=== PATIENT | female | born 1955 | race Caucasian/White ===

== ENCOUNTER 2022-02-11 08:28 | Inpatient (IN) ==
[2022-02-05 12:28] LABS: Basophils % 0.7 % (0.0-0.8); Eosinophils # 0.3 10*3/uL (0.0-0.87); Eosinophils % 5.7 % (0.00-10.9); Hematocrit 40.4 VOL% (35.7-47.0); Immature Granulocytes % 0.2 %; Immature Granulocytes Absolute 0.01 #; Lymphocytes # 1.8 10*3/uL (1.4-4.0); Lymphocytes % 30.5 % (21.3-54.2); Mean Corpuscular HGB Conc 32.2 GM/DL (32-36); Mean Corpuscular Volume 91.8 FL (87-102); Mean Platelet Volume 9.8 FL (9.6-12.0); Monocytes # 0.4 10*3/uL (0.11-0.8); Monocytes % 7.5 % (1.7-12.7); Neutrophils % 55.4 % (38.7-73.9); Platelet Count 346 T/CUMM (130-400); Red Cell Distribution Width 13.3 % (9.3-17.3); White Blood Count 5.8 T/CUMM (4-12)
[2022-02-05 12:48] LABS: Calcium 8.8 MG/DL (8.5-10.1); Osmolality,Calculated 273.5 MOS/KG (273-304); Potassium 3.5 MMOL/L (3.5-5.1)
[~2022-02-11 08:28] MED LIST: ALVIMOPAN 12 MG CAPSULE PO ONE; ERTAPENEM 1,000 MG in SODIUM CHLORIDE 0.9% 100 ML IV ONE
[2022-02-11] MEDS: LACTATED RINGERS 1,000 ML IV SCH ×4 (09:05→22:10)
[2022-02-11] MEDS ORDERED: DIAZEPAM 5 MG TABLET PO STA (09:30)
[2022-02-11] MEDS ORDERED: ROCURONIUM 50 MG/5 ML VIAL IV ONE (09:33)
[2022-02-11] MEDS ORDERED: fentaNYL 100 MCG/2 ML VIAL ONE (09:33)
[2022-02-11] MEDS ORDERED: DESFLURANE 1 UNIT/15 MINUTE INH ONE ×2 (09:33→15:18)
[2022-02-11] MEDS ORDERED: ONDANSETRON 4 MG/2 ML VIAL ONE (09:33)
[2022-02-11] MEDS ORDERED: LIDOCAINE 2% 5 ML VIAL ONE (09:33)
[2022-02-11] MEDS ORDERED: propofoL 200 MG/20 ML VIAL IV ONE (09:33)
[2022-02-11] MEDS ORDERED: MIDAZOLAM 2 MG/2 ML VIAL ONE (09:35)
[2022-02-11] MEDS ORDERED: LIDOCAINE 1% 5 ML VIAL ONE (10:23)
[2022-02-11] MEDS ORDERED: BUPIVACAINE MPF 0.25% 30 ML VIAL ONE (10:23)
[2022-02-11] MEDS ORDERED: PHENYLEPHRINE 1 MG/10 ML SYRINGE IV ONE (13:11)
[2022-02-11] MEDS ORDERED: ePHEDrine 50 MG/ML VIAL ONE (13:29)
[2022-02-11] MEDS ORDERED: TISSUE ADHESIVE 1 EACH APPLICATOR TOP ONE (14:03)
[2022-02-11] MEDS ORDERED: INDOCYANINE GREEN 25 MG VIAL IV ONE (14:34)
[2022-02-11] MEDS ORDERED: GLYCOPYRROLATE 0.4 MG/2 ML VIAL ONE (15:13)
[2022-02-11 16:10] LABS: RBC,Urine <1 /HPF (0-4)
[2022-02-11 16:11] LABS: Urine Appearance Clear (Clear); Urine Color Yellow (Yellow)
[2022-02-11 16:12] LABS: Bilirubin,Urine Negative (Negative); Blood, Urine Trace mg/dL (Negative); Glucose,Urine (UA) Negative (Negative); Ketones,Urine Negative (Negative); Nitrite,Urine Negative (Negative); Protein,Urine Negative (Negative); Urine Urobilinogen 0.2 eU/dL (<2.0)
[2022-02-11] MEDS ORDERED: ONDANSETRON 4 MG/2 ML VIAL IV PRN (17:12)
[2022-02-11] MEDS ORDERED: HYDROmorphone 1 MG/1 ML SYRINGE IV PRN (17:12)
[2022-02-11] MEDS: KETOROLAC 15 MG/1 ML VIAL IV SCH ×2 (17:46→22:17)
[2022-02-11 17:48] LABS: Basophils % 0.2 % (0.0-0.8); Eosinophils % 0.2 % (0.00-10.9); Hematocrit 38.7 VOL% (35.7-47.0); Hemoglobin 12.6 GM/DL (12.0-16.0); Immature Granulocytes % 0.4 %; Immature Granulocytes Absolute 0.05 #; Lymphocytes # 1.7 10*3/uL (1.4-4.0); Lymphocytes % 14.2 % (21.3-54.2); Mean Corpuscular HGB Conc 32.6 GM/DL (32-36); Mean Corpuscular Volume 91.3 FL (87-102); Mean Platelet Volume 9.7 FL (9.6-12.0); Monocytes # 0.6 10*3/uL (0.11-0.8); Monocytes % 5.4 % (1.7-12.7); Neutrophils % 79.6 % (38.7-73.9); Platelet Count 274 T/CUMM (130-400); Red Blood Count 4.24 MC/CUMM (3.8-5.5); Red Cell Distribution Width 13.6 % (9.3-17.3); White Blood Count 11.8 T/CUMM (4-12)
[2022-02-11 18:03] LABS: Calcium 8.5 MG/DL (8.5-10.1); Osmolality,Calculated 276.4 MOS/KG (273-304)
[2022-02-11] MEDS ORDERED: POTASSIUM CHLORIDE 20 MEQ TABLET PO PRN (20:11)
[2022-02-11] MEDS ORDERED: POTASSIUM CHLORIDE 20 MEQ TABLET PO ONE (20:11)
[2022-02-11] MEDS ORDERED: DORZOLAMIDE/TIMOLOL OPH SOLN 10 ML BOTTLE BOTH EYES SCH (21:00)
[2022-02-11] MEDS: ALVIMOPAN 12 MG CAPSULE PO SCH (22:17)
[2022-02-11] MEDS: [UNRECOGNIZED DRUG - OTHER] BOTH EYES SCH (23:18)
[2022-02-11] MEDS: BRINZOLAMIDE BRIMONIDINE BOTH EYES SCH (23:18)
[2022-02-12] MEDS: KETOROLAC 15 MG/1 ML VIAL IV SCH (04:41)
[2022-02-12] MEDS: LACTATED RINGERS 1,000 ML IV SCH ×2 (04:42→14:15)
[2022-02-12 05:57] LABS: Basophils % 0.1 % (0.0-0.8); Hematocrit 35.1 VOL% (35.7-47.0); Hemoglobin 11.5 GM/DL (12.0-16.0); Immature Granulocytes % 0.4 %; Immature Granulocytes Absolute 0.04 #; Lymphocytes % 8.7 % (21.3-54.2); Mean Corpuscular HGB Conc 32.8 GM/DL (32-36); Mean Corpuscular Volume 90.2 FL (87-102); Mean Platelet Volume 10.3 FL (9.6-12.0); Monocytes # 0.5 10*3/uL (0.11-0.8); Monocytes % 4.9 % (1.7-12.7); Neutrophils % 85.9 % (38.7-73.9); Platelet Count 283 T/CUMM (130-400); Red Blood Count 3.89 MC/CUMM (3.8-5.5); Red Cell Distribution Width 13.6 % (9.3-17.3)
[2022-02-12 06:19] LABS: Calcium 8.6 MG/DL (8.5-10.1); Osmolality,Calculated 280.3 MOS/KG (273-304); Potassium 3.6 MMOL/L (3.5-5.1)
[2022-02-12] MEDS ORDERED: OMEPRAZOLE ODT 20 MG TABLET PO SCH (09:00)
[2022-02-12] MEDS ORDERED: CITALOPRAM 20 MG TABLET PO SCH (09:00)
[2022-02-12] MEDS: ALVIMOPAN 12 MG CAPSULE PO SCH (09:09)
[2022-02-12] MEDS: BRINZOLAMIDE BRIMONIDINE BOTH EYES SCH (09:16)
[2022-02-12] MEDS: [UNRECOGNIZED DRUG - OTHER] BOTH EYES SCH (09:16)
[2022-02-12] MEDS ORDERED: ENOXAPARIN 40 MG/0.4 ML SYRINGE SUBCUT SCH (10:00)
[2022-02-12 11:50] VITALS: BP 101/54
== END 2022-02-12 14:28 | disposition home or self-care (01) | DRG 331 ==
LOC: N.OR 08:28 → N.SDSINP 08:28 → N.5E 16:14
PROVIDERS: ADMIT Surgery; ATTEND Surgery